=== PATIENT | male | born 1965 | race Caucasian/White ===

== ENCOUNTER 2023-07-06 07:13 | Emergency (ER) | payer SELFPAY ==
[2023-07-06 07:19] VITALS: PULSE 112; O2SAT 98
[2023-07-06 07:20] VITALS: BP 152/74; PULSE 120; RESP 20; TEMP 36.9; O2SAT 97
[2023-07-06 07:29] LABS: Add Manual Diff / Slide Review NO; Basophils Absolute Auto 0 /uL (0-100); Basophils Percent Auto 0.4 % (0-2); Eosinophils Absolute Auto 100 /uL (0-450); Eosinophils Percent Auto 0.4 % (2-4); Hematocrit 46.7 % (41-53); Lymphocytes Absolute Auto 3500 /uL (1100-4500); Lymphocytes Percent Auto 27.2 % (25-40); Mean Corpuscular HGB Conc 34.3 % (30-36); Mean Corpuscular Hemoglobin 30.2 PG (26-34); Mean Corpuscular Volume 88.2 fL (80-100); Monocytes Absolute Auto 700 /uL (0-900); Monocytes Percent Auto 5.5 % (3-14); Neutrophils Absolute Auto 8600 /uL (1500-7000); Neutrophils Percent Auto 66.5 % (50-75); Platelet Count 220 X10^3/uL (150-400); Red Blood Cell Count 5.29 X10^6/uL (4.5-5.9); Red Cell Distribution Width 12.9 % (11.6-14.8); White Blood Cell Count 12.9 X10^3/uL (4.5-11.0)
--- NOTE | 2023-07-06 07:29 | ED.ABDPAIN ---
HPI - Abdominal Pain General Chief Complaint: Abdominal Pain Stated Complaint: abd pain Time Seen by Provider: 07/06/23 07:16 Source: EMS Mode of arrival: EMS History of Present Illness HPI narrative: Patient 58-year-old male without significant past medical history presenting today with increased right lower abdominal pain. He reports that he has had abdominal pain all over for the last 7-8 months over the last few days it has stayed in the right lower quadrant. He reports that he is lost 20 lb without trying but says that it is due to poor dentition. He has been unable to eat anything but soft food for a long time. So he thinks he is lost weight. Also due to severe dental and teeth pain he has been taking excessive amounts of ibuprofen for a long time. He denies any bloody stool black stool red stool. No nausea or vomiting or fever. He reports he lost his job and pandemic and thin in active and unable to get any sort of medical or dental insurance. He denies any dizziness lightheadedness chest pain shortness of breath. He has minimal back pain. No painful or frequent urination Related Data Previous Rx's Medication Instructions Recorded amoxicillin 875 mg-potassium 1 tab PO BID #20 tabs 07/06/23 clavulanate 125 mg tablet Allergies Allergy/AdvReac Type Severity Reaction Status Date / Time No Known Drug Allergies Allergy Verified 07/06/23 07:35 Patient History Social History Smoking Status: Current every day smoker Smoking Status: Current every day smoker tobacco type: cigarettes alcohol intake frequency: 0-2 drinks per day Substance Use Type: does not use Exam Initial Vital Signs Initial Vital Signs: Vital Signs Pulse Rate 112 H 07/06/23 07:19 Pulse Oximetry 98 07/06/23 07:19 GENERAL: Alert 58-year-old male and in [no acute] distress. HEENT: Head atraumatic,EOMI, pupils reactive, face symmetric, [moist] mucous membranes CARDIOVASCULAR: Regular rate and rhythm without murmurs, rubs or gallops. RESPIRATORY: Breath sounds equal bilaterally, no wheezes rales or rhonchi. ABDOMEN: Soft, mild right lower quadrant pain negative Clark sign no guarding no rebound no distinct : No CVA tenderness EXTREMITIES: Normal range of motion, no clubbing or edema. Neurovascularly intact NEUROLOGICAL: Alert and oriented x4.Normal gait and speech. SKIN: Warm, dry, no laceration, no petechiae, no rashes or lesions. Course Orders Ordered: ED Orders 07/06/23 07:19 EKG-12 Lead Stat 07/06/23 07:22 CEA [Carcinoembryonic Antigen] Stat Complete Blood Count AUTO DIFF Stat Comprehensive Metabolic Panel Stat Lipase Stat 07/06/23 07:24 [place] [facility] [place] [facility] [place] [facility] [employer]elty Investigation Supervisor Stat 07/06/23 07:28 CT abdomen pelvis w con Stat 07/06/23 08:56 [facility] Discontinued Medications Ondansetron HCl (Ondansetron 4 Mg Odt) 4 mg PO NOW PRN PRN Reason: Nausea And Vomiting Ondansetron HCl (Ondansetron 4 Mg/2 Ml Inj) 4 mg IV NOW PRN PRN Reason: Nausea And Vomiting Vital Signs Vital signs: Vital Signs - 8 hr 07/06/23 07:19 07/06/23 07:20 07/06/23 07:30 Temperature 98.5 F Pulse Rate 112 H 120 H 102 H Respiratory Rate 20 Blood Pressure 152/74 H Pulse Oximetry 98 97 97 Oxygen Delivery Method Room Air 07/06/23 08:00 07/06/23 08:44 07/06/23 08:44 Temperature Pulse Rate 95 H 88 Respiratory Rate Blood Pressure 153/74 H Pulse Oximetry 96 97 Oxygen Delivery Method MDM - Abdominal Pain Lab Data 07/06/23 07:22 07/06/23 07:22 Labs: Lab Results 07/06/23 Range/Units 07:22 WBC 12.9 H (4.5-11.0) X10^3/uL RBC 5.29 (4.5-5.9) X10^6/uL Hgb 16.0 (13.5-17.5) g/dL Hct 46.7 (41-53) % MCV 88.2 (80-100) fL MCH 30.2 (26-34) PG MCHC 34.3 (30-36) % RDW 12.9 (11.6-14.8) % Plt Count 220 (150-400) X10^3/uL Neut % (Auto) 66.5 (50-75) % Lymph % (Auto) 27.2 (25-40) % Slope % (Auto) 5.5 (3-14) % Eos % (Auto) 0.4 L (2-4) % Baso % (Auto) 0.4 (0-2) % Neut # (Auto) 8600 H (3513-0393) /uL Lymph # (Auto) 3500 (0888-9170) /uL Slope # (Auto) 700 (0-900) /uL Eos # (Auto) 100 (0-450) /uL Baso # (Auto) 0 (0-100) /uL Sodium 139 (137-145) mmol/L Potassium 3.7 (3.4-5.1) mmol/L Chloride 106 (98-107) mmol/L Carbon Dioxide 22 (22-32) mmol/L BUN 24 H (9-20) mg/dL Creatinine 0.97 (0.66-1.25) mg/dL Estimated GFR > 60 (>60) mL/min BUN/Creatinine Ratio 24.7 H (6-22) Glucose 156 H (70-100) mg/dL Calcium 8.9 (8.4-10.2) mg/dL Total Bilirubin 1.2 (0.2-1.3) mg/dL AST 20 (17-59) IU/L ALT 25 (<50) IU/L Alkaline Phosphatase 87 (38-126) U/L Total Protein 7.3 (6.3-8.2) g/dL Albumin 4.6 (3.5-5.0) g/dL Globulin 2.7 (1.7-4.1) g/dL Albumin/Globulin Ratio 1.7 (1.0-2.8) Lipase 67 (23-300) U/L Carcinoembryonic Ag 0.8 (0.1-3.0) ng/mL Point of care testing: Urine Dip Bedside Urine Glucose Negative Bedside Urine Bilirubin - Negative Bedside Urine Ketone - Negative Urine Specific [place] 1.015 Bedside Urine Occult Blood +/- Bedside Urine pH 6.0 Bedside Urine Protein - Negative Bedside Urine Urobilinogen - Negative Bedside Urine Nitrite - Negative Bedside Urine Leukocytes - Negative Esterase Imaging Data CT scan - abdomen/pelvis: Radiologist's Impression: PROCEDURE: CT ABDOMEN PELVIS W CON INDICATIONS: right sided ab pain TECHNIQUE: After the administration of intravenous contrast, axial sections acquired from the lung bases to the pubic symphysis. Coronal and sagittal reformats were performed. For radiation dose reduction, the following was used: automated exposure control, adjustment of mA and/or kV according to patient size. COMPARISON: None. FINDINGS: Image quality: Diagnostic. Lower Chest: No significant findings. ABDOMEN: Liver: No solid mass. Scattered hepatic hypodensities, favored to represent simple cysts. Gallbladder: No radiopaque gallstones or wall thickening. Biliary ducts: No biliary dilation. Pancreas: No ductal dilation. Spleen: Size is within normal limits. Adrenal Glands: No adrenal nodules. Kidneys and Ureters: No hydronephrosis. No solid mass. No complex renal cystic lesion which requires follow up. Stomach and Bowel: Small hiatal hernia. Normal colonic caliber, without significant wall thickening. Diverticulosis without evidence of acute diverticulitis. Normal appendix. Possible soft tissue density within the sigmoid colon measuring approximately 3 cm (262, 4/38). Peritoneum: No abnormal intraperitoneal fluid. No free air. Ventral Wall: Tiny fat containing ventral hernia. Abdominal Nodes: No retroperitoneal or mesenteric adenopathy by size criteria. Vessels: Aorta and inferior vena cava are normal in size. Atherosclerotic vascular calcifications. PELVIS: Pelvic Organs: Unremarkable. Bladder: No bladder wall thickening, accounting for underdistention. Pelvic Nodes: No enlarged lymph nodes. Miscellaneous: Small bilateral fat containing inguinal hernias are seen. Bones: No aggressive osseous abnormality. Degenerative changes of the spine. IMPRESSION: 1. There appears to be a soft tissue density focus within the sigmoid colon measuring up to 3 cm. Findings may represent a pedunculated lesion. Recommend correlation with colonoscopy to exclude underlying mass. 2. No acute findings within the abdomen or pelvis to explain patient's symptoms. 3. Diverticulosis without evidence of acute diverticulitis. Normal appendix. Dictated by: Sagar Vega M.D. on 07/06/2023 at 8:39 Approved by: Sagar Vega M.D. on 07/06/2023 at 8:44 MDM Narrative Medical decision making narrative: Patient 58-year-old male presents today with a variety of complaints. Reports that he has significant dental problems does not have insurance can only eat soft food therefore lost 20 lb. But has had ongoing abdominal pain for a few months worse today over on the right side. Also takes excessive amounts of ibuprofen for pain which also does not help. On exam he is mildly tender on the right side not an acute abdomen. No obvious dental abscess or significant infection. He does have diffuse erythema on his skin with significant flakiness and dry skin which he is also concerned about. This has been chronic sounds like and relatively unchanged. He does have a large hemangioma on the right side of face as well. Blood work has been reviewed: He is found to have mild leukocytosis 12.9 without anemia, electrolytes are stable creatinine 0.97, bilirubin 1.2, AST 20, ALT 25, lipase 67 CT scan does not show cause of right lower quadrant pain but does show soft tissue pedunculated lesion on the left sigmoid colon measuring up to 3 cm. Can not exclude mass Patient is nontender on the left side more tender on the right side. Reports that he takes some sort of MiraLax every day continues to be concerned about his mouth and his face. He is informed of this lesion on the left side. He has never had a colonoscopy. Dr. Dumont updated states that patient can follow-up in clinic for colonoscopy. Patient is given Augmentin for is mouth and possibly his face. Encouraged him to use a moisturizer for his face. CEA is pending. Surprisingly no evidence of OSMIN despite the amount of ibuprofen he is taking. Recommend he take Tylenol and ibuprofen he is given proper amounts to do so. Discharge Plan Departure Patient Disposition: Home Clinical Impression: Colonic mass, Dental caries Instructions: Constipation, DI for Dental Pain Activity Restrictions/Additional Instructions: *You have been diagnosed with a colon mass left side and dental cavity *What to do: At this time you do need a colonoscopy to look at polyp or mass in your colon on the left side. You need to call general surgery to schedule follow up appointment. They are aware of you today. This is unlikely causing your pain right side. Also recommend that you get a dentist biscuit factory worker can call and help you with some health insurance. I also recommend that you feel that the paperwork that you were given. I also recommend that you get Aquaphor or some sort of moisturizer to put on your face to help with the dryness *Continue to take medications as directed Augmentin 875 mg twice a day for 10 days--> JULIET Motrin 600 mg every 8 hours if needed for [id number] pain Tylenol 1000 mg every 6 hours if needed for [id number] pain MiraLax take as directed daily Dulcolax 100 mg 1-2 times daily as needed for constipation *Follow up with your primary care provider in 2-3 days or call [phone] *Return to ER if you should have increasing pain vomiting weight loss facial swelling or any new, worsening or concerning symptoms Prescriptions: New amoxicillin-pot clavulanate 875-125 mg tablet 1 tab PO BID Qty: 20 0RF Referrals: [facility] [Provider Group] Stand Alone Forms: Patient Portal/API
[2023-07-06 07:30] VITALS: PULSE 102; O2SAT 97
[2023-07-06 07:43] LABS: Alanine Aminotransferase 25 IU/L (<50); Albumin 4.6 g/dL (3.5-5.0); Albumin Globulin Ratio 1.7 (1.0-2.8); Alkaline Phosphatase 87 U/L (38-126); Aspartate Aminotransferase 20 IU/L (17-59); BUN Creatinine Ratio 24.7 (6-22); Bilirubin Total 1.2 mg/dL (0.2-1.3); Blood Urea Nitrogen 24 mg/dL (9-20); Calcium 8.9 mg/dL (8.4-10.2); Carbon Dioxide 22 mmol/L (22-32); Chloride 106 mmol/L (98-107); Estimated Glomerular Filt Rate > 60 mL/min (>60); Globulin 2.7 g/dL (1.7-4.1); Glucose 156 mg/dL (70-100); HEMOLYSIS < 15 (0-50); Lipase 67 U/L (23-300); Potassium 3.7 mmol/L (3.4-5.1); Sodium 139 mmol/L (137-145); Total Protein 7.3 g/dL (6.3-8.2)
[2023-07-06 08:00] VITALS: PULSE 95; O2SAT 96
[2023-07-06 08:44] VITALS: BP 153/74; PULSE 88; O2SAT 97
[2023-07-06 10:24] LABS: Carcinoembryonic Antigen 0.8 ng/mL (0.1-3.0)
--- NOTE | 2023-07-06 10:24 | PC.NURSE ---
Provided pt with d/c education regarding the importance of taking full course of abx. Also discussed different OTC options for home management of pain and constipation. Pt understands that he is to call [facility] office to schedule procedure. Pt verbalized understanding of teaching. Refused vital signs at the time of d/c. Pt given taxi voucher for ride home, resources for acquiring insurance/medicare/medicaid and applying for erika care, and good rx coupon to help cover cost of prescribed abx. Pt declined waiting to speak with [employer] for resource assitance. Escorted pt to [facility] and assisted pt in calling [employer] [facility] [employer] at [address] [place] [address].
== END 2023-07-06 10:26 | disposition home or self-care (01) ==
PROVIDERS: Emergency Provider Emergency Medicine
DX: K63.89 Other specified diseases of intestine (principal); K02.9 Dental caries, unspecified
CPT/HCPCS: 36415; 74177; 80053; 81003; 82378; 83690; 85025; 99283; 99284